=== PATIENT | male | born 1940 | race Caucasian/White ===

== ENCOUNTER 2016-10-29 09:05 | Emergency (ER) | payer OTHER ==
[~2016-10-29 09:05] MED LIST: BETH25 PO; TERA5CAP34 PO
[2016-10-29 09:10] VITALS: BP 125/87; PULSE 93; RESP 20; TEMP 98.9; O2SAT 95
--- NOTE | 2016-10-29 09:21 | PD ---
HPI Chief Complaint: Skin Problem Time Seen by Provider: 09:14 Travel History International Travel<30 days: No Contact w/Intl Traveler<30days: No Traveled to known affect area: No History of Present Illness HPI The patient is a 76-year-old male who presents emergency department for an infected cyst on the mid back. The patient does have a previous history of infected cyst on the back with previous incision and drainage and packing placement several years ago. The patient states he started of swelling and pain 3-4 days ago. The area is located in her right mid thoracic region, states it is tender to lie on, but denies any drainage from the affected area. He denies any fever, chills, or sweats. The patient's symptoms are mild to moderate, there are no alleviating factors, pain is exacerbated by lying on the affected area. PFSH Past Medical History GERD: Yes Genitourinary: Yes Hiatal Hernia: Yes (NO SURGERY) Past Surgical History Genitourinary Surgery: Yes (TURP FOR ENLARGE PROSTATE) Joint Replacement: Yes (RIGHT KNEE TKR) Other Surgery: Yes (EYE LID LIFT/PER PT RIGHT EYE LID NORMALLY DROOPY) Social History Alcohol Use: Yes (A GLASS A WINE A COUPLE IN A WEEK) Tobacco Use: No Substance Use: No Allergies-Medications (Allergen,Severity, Reaction): Coded Allergies: No Known Allergies (Verified , 10/29/16) Reported Meds & Prescriptions Reported Meds & Active Scripts Active Reported Urecholine (Bethanechol Chloride) 25 Mg Tab 25 Mg PO QID Hytrin (Terazosin HCl) 5 Mg Cap 5 Mg PO HS Review of Systems General / Constitutional: No: Fever Gastrointestinal: No: Nausea, Vomiting Musculoskeletal: Positive: Other (pain over the cyst on the back) Skin: Positive Other (as noted in the history of present illness) Physical Exam Narrative GENERAL: Awake, alert, pleasant 76-year-old male who appears his stated age and is in no acute respiratory distress. SKIN: Warm and dry. HEAD: Atraumatic. Normocephalic. EYES: No injection or drainage. NECK: Trachea midline. No JVD. MUSCULOSKELETAL: No obvious deformities. No clubbing. No cyanosis. No edema. Back: Patient has an area of induration and fluctuance on the right mid thoracic region approximately 4 cm in diameter with some overlying erythema. No visible drainage. Area is tender to palpation. NEUROLOGICAL: Awake and alert. No obvious cranial nerve deficits. Motor grossly within normal limits. Normal speech. PSYCHIATRIC: Appropriate mood and affect; insight and judgment normal. Data Data Last Documented VS Vital Signs Date Time Temp Pulse Resp B/P Pulse Ox O2 Delivery O2 Flow Rate FiO2 10/29/16 09:10 98.9 93 20 125/87 95 Orders Wound Culture And Gram Stain (10/29/16 09:17) Lidocaine 1% Inj (50 Ml) (Xylocaine 1% I (10/29/16 09:30) [facility] Medical Decision Making Medical Screen Exam Complete: Yes Emergency Medical Condition: Yes Medical Record Reviewed: Yes Differential Diagnosis Differential diagnosis includes abscess, sebaceous cyst, cellulitis, infected wound. Narrative Course I had a discussion with patient regarding incision and drainage, patient is agreeable to have the area incised and drained. Therefore, the area was anesthetized 1% lidocaine with epinephrine using a 25-gauge needle, cleaned with Betadine, and opened with a #11 incisional bleed. The abscess appeared to be an infected sebaceous cyst, therefore, no culture was obtained. A 1 cm incision was made, no packing was applied. The patient is advised to apply warm compresses, take medications as directed, and return if symptoms worsen or progress. Procedures Procedure Narrative After the risks and benefits were discussed the following procedure was performed: INCISION AND DRAINAGE OF ABSCESS: The area was prepped and was sterilely draped. A subcutaneous wheal of 1 % Xylocaine with a total number 3 mL was used to anesthetize the area. The area was properly anesthetized. A number 11 scalpel was used to make a 1 -cm incision across the area of the abscess. Diagnosis Primary Impression: Infected sebaceous cyst Patient Instructions: General Instructions Additional Instructions: Medications as directed. Follow-up with your primary physician. Return if symptoms worsen or progress. Med/Other Pt SpecificInfo: Prescription(s) given Scripts Hydrocodone-Acetaminophen ([place])5-325 mg Tab1 Tab PO Q6H PRN (PAIN) #15 TAB Ref 0 Prov:Daniel Sánchez MD 10/29/16 Sulfamethoxazole-Trimethoprim (Bactrim DS)800-160 Mg Tab1 Tab PO BID #14 TAB Ref 0 Prov:Daniel Sánchez MD 10/29/16 Disposition: 01 DISCHARGE HOME Condition: Stable Daniel Sánchez MD Oct 29, 2016 09:21
[2016-10-29] MEDS ORDERED: LIDOCAINE HCL 1% 50 ML VIAL INFIL ONE (09:30)
[2016-10-29] MEDS ORDERED: BACT800T5 PO (09:34)
[2016-10-29] MEDS ORDERED: NORC5TAB PO (09:34)
[2016-10-29] MEDS ORDERED: TERA5CAP3 PO (09:48)
[2016-10-29] MEDS ORDERED: BETH25 PO (09:48)
== END 2016-10-29 09:54 | disposition home or self-care (01) ==
LOC: PHED 09:05
DX: L72.3 Sebaceous cyst (principal)
CPT/HCPCS: 10060